=== PATIENT | female | born 1975 ===

== ENCOUNTER 2017-05-06 17:24 | Emergency (ER) | payer BC, OTHER ==
[2017-05-06 17:36] VITALS: BP 138/93
--- NOTE | 2017-05-06 18:21 | Emergency Department Report ---
Minor Respiratory - HPI Chief Complaint: Sore Throat Stated Complaint: EAR AND SORE THROAT Time Seen by Provider: 05/06/17 18:17 Duration: 5 Days Pain Location: Facial, Throat Severity: mild Minor Respiratory: Yes Sore Throat, Yes Able to Tolerate Fluids, Yes Ear Pain, Yes Cough, No Rhinorrhea, No Sick Contacts, No Hemoptysis, No Chest Pain, No Shortness of Breath, No Fever ED Review of Systems ROS: Stated complaint: EAR AND SORE THROAT Other details as noted in HPI Comment: All other systems reviewed and negative ENT: throat pain, other (post nasal drip; clears throat) Respiratory: cough (clears throat) Cardiovascular: denies: chest pain, palpitations Endocrine: no symptoms reported Gastrointestinal: as per HPI Genitourinary: as per HPI Musculoskeletal: as per HPI Skin: as per HPI Neurological: as per HPI Psychiatric: as per HPI Hematological/Lymphatic: as per HPI ED Past Medical Hx - Past Medical History Previous Medical History?: No - Surgical History Past Surgical History?: Yes Additional Surgical History: Tubal ligation 2003 - Social History Smoking Status: Never Smoker Substance Use Type: None - Medications Home Medications: Home Medications Medication Instructions Recorded Confirmed Last Taken Type Amoxicillin [Trimox CAP] 500 mg PO BID #20 capsule 05/06/17 Unknown Rx methylPREDNISolone [Medrol] 4 mg PO DAILY #1 tab.ds.pk 05/06/17 Unknown Rx Minor Respiratory Exam - Exam General: Vital signs noted. No distress. Alert and acting appropriately. HEENT: Yes Pharyngeal Erythema, Yes Moist Mucous Membranes, Yes Maxillary Tenderness, No Pharyngeal Exudates, No Rhinorrhea, No Conjuctival Injection, No Frontal Tenderness Ear: Neither TM Bulge, Neither TM Erythema, Neither EAC Pain, Neither EAC Discharge (wax r) Neck: Yes Adenopathy, No Supple Lungs: Yes Good Air Exchange, No Wheezes, No Ronchi, No Stridor, No Cough, No Labored Respirations, No Retractions, No Use of Accessory Muscles, No Other Abnormal Lung Sounds Heart: Yes Regular, No Murmur Abdomen: Yes Normal Bowel Sounds, No Tenderness, No Peritoneal Signs Skin: No Rash, No Edema Neurologic: Alert and oriented, no deficits. Musculoskeletal: Unremarkable. ED Course Vital Signs 05/06/17 17:33 Temperature 99 F Pulse Rate 80 Respiratory 18 Rate Blood Pressure 138/93 O2 Sat by Pulse 100 Oximetry - Reevaluation(s) Reevaluation #1: 05/06/17 18:21 vss no fever no cp no sob non toxic ED Medical Decision Making - Medical Decision Making see note - Differential Diagnosis urti Critical care attestation.: If time is entered above; I have spent that time in minutes in the direct care of this critically ill patient, excluding procedure time. ED Disposition Clinical Impression: Upper respiratory infection, Sinusitis, Pharyngitis Disposition: DC- TO HOME OR SELFCARE Is pt being admited?: No Does the pt Need Aspirin: No Condition: Stable Instructions: Sinusitis (ED) Additional Instructions: rest hydrate well motrin or tylenol for pain or fever zyrtec over the counter as needed for post nasal drip flonase over the counter daily debrox over the counter for wax in your right ear no q tips meds as ordered today follow up pcp see name below Referrals: YUDI MELISSA MD [Staff Physician] - 3-5 Days Time of Disposition: 18:19
== END 2017-05-06 18:49 | disposition home or self-care (01) ==
LOC: ED 17:24
DX: J06.9 Acute upper respiratory infection, unspecified (principal); J32.0 Chronic maxillary sinusitis; J02.9 Acute pharyngitis, unspecified
CPT/HCPCS: 99282

== ENCOUNTER 2017-10-25 03:38 | Emergency (ER) | payer SELFPAY ==
--- NOTE | 2017-10-25 06:43 | Emergency Department Report ---
Chief Complaint: Urogenital-Female Stated Complaint: VAGINAL PAIN Time Seen by Provider: 10/25/17 06:41 - HPI History of Present Illness: 42-year-old female presents with vaginal odor with vaginal H in the past 2 days. She states dysuria states last menstrual period was - ROS Review of Systems: As noted in HPI, denies fever assess shows sinus nausea or vomiting abdominal pain - Exam Vital Signs: Vital Signs 10/25/17 03:57 Temperature 98.9 F Pulse Rate 91 H Blood Pressure 126/86 O2 Sat by Pulse 100 Oximetry MSE screening note: Focused history and physical exam performed. Due to findings the following was ordered: ED Medical Decision Making - Medical Decision Making Stable 42-year-old female, urinalysis, urine test, wet prep and chlamydia and gonorrhea cultures ordered. She is stable patient will be moved to home with the pelvic pain will be seen by oncoming provider ED Disposition for MSE Condition: Stable Referrals: PRIMARY CARE, [Primary Care Provider] - 3-5 Days
[2017-10-25 07:08] LABS: HCG Qualitative,Urine Negative (Negative)
[2017-10-25 07:11] LABS: Bacteria,Urine 1+ /HPF (Negative); Bilirubin,Urine NEG (Negative); Blood,Urine NEG (Negative); Color,Urine Yellow (Yellow); Mucus,Urine 2+ /HPF; Protein,Urine <15 mg/dL mg/dL (Negative); Urobilinogen,Urine < 2.0 mg/dL (<2.0)
--- NOTE | 2017-10-25 07:49 | Emergency Department Report ---
ED Female HPI - General Chief complaint: Urogenital-Female Stated complaint: VAGINAL PAIN Time Seen by Provider: 10/25/17 06:41 Source: patient Mode of arrival: Ambulatory Limitations: No Limitations - History of Present Illness Initial comments: This is a 42-year-old female nontoxic, well nourished in appearance, no acute signs of distress presents to the ED with c/o of vaginal itching and pain 3 days. Patient stated that she changed recent so and developed this. Patient stated this occurred prior. Patient also stated that she has vaginal discharge with odor. Patient denies any urinary symptoms. Patient denies any fever, chills, nausea, vomiting, headache, stiff neck, numbness, tingling, chest pain, shortness of breath. Patient denies any abdominal pain or back pain. Patient denies any allergies or significant past medical history. MD Complaint: other (vaginal itching) -: days(s) (3) Radiation: non-radiating Severity: mild Severity scale (0 -10): 4 Quality: other (itching) Consistency: constant Improves with: none Worsens with: none Are you Now?: No Last Menstrual Period: 10/03/17 EDC: 07/10/18 Associated Symptoms: vaginal discharge. denies: vaginal bleeding, abdominal pain, nausea/vomiting, fever/chills, headaches, loss of appetite, dysuria, hematuria, rash, seizure, shortness of breath, syncope, weakness - Related Data Previous Rx's Medication Instructions Recorded Last Taken Type Amoxicillin [Trimox CAP] 500 mg PO BID #20 capsule 05/06/17 Unknown Rx methylPREDNISolone [Medrol] 4 mg PO DAILY #1 tab.ds.pk 05/06/17 Unknown Rx metroNIDAZOLE [Flagyl] 500 mg PO Q12HR #14 tab 10/25/17 Unknown Rx Allergies Allergy/AdvReac Type Severity Reaction Status Date / Time No Known Allergies Allergy Verified 10/25/17 04:01 ED Review of Systems ROS: Stated complaint: VAGINAL PAIN Other details as noted in HPI Constitutional: denies: chills, fever Eyes: denies: eye pain, eye discharge, vision change ENT: denies: ear pain, throat pain Respiratory: denies: cough, shortness of breath, wheezing Cardiovascular: denies: chest pain, palpitations Endocrine: no symptoms reported Gastrointestinal: denies: abdominal pain, nausea, diarrhea Genitourinary: discharge. denies: urgency, dysuria Musculoskeletal: denies: back pain, joint swelling, arthralgia Skin: denies: rash, lesions Neurological: denies: headache, weakness, paresthesias Psychiatric: denies: anxiety, depression Hematological/Lymphatic: denies: easy bleeding, easy bruising ED Past Medical Hx - Surgical History Additional Surgical History: Tubal ligation 2003 - Social History Smoking Status: Never Smoker Substance Use Type: None - Medications Home Medications: Home Medications Medication Instructions Recorded Confirmed Last Taken Type Amoxicillin [Trimox CAP] 500 mg PO BID #20 capsule 05/06/17 Unknown Rx methylPREDNISolone [Medrol] 4 mg PO DAILY #1 tab.ds.pk 05/06/17 Unknown Rx metroNIDAZOLE [Flagyl] 500 mg PO Q12HR #14 tab 10/25/17 Unknown Rx ED Physical Exam - General Limitations: No Limitations General appearance: alert, in no apparent distress - Head Head exam: Present: atraumatic, normocephalic - Eye Eye exam: Present: normal appearance Pupils: Present: normal accommodation - ENT ENT exam: Present: normal exam, mucous membranes moist - Neck Neck exam: Present: normal inspection, full ROM. Absent: tenderness, meningismus - Respiratory Respiratory exam: Present: normal lung sounds bilaterally. Absent: respiratory distress, wheezes, rales, rhonchi, stridor, chest wall tenderness, accessory muscle use, decreased breath sounds, prolonged expiratory - Cardiovascular Cardiovascular Exam: Present: regular rate, normal rhythm, normal heart sounds. Absent: irregular rhythm, systolic murmur, diastolic murmur, rubs, gallop - GI/Abdominal GI/Abdominal exam: Present: soft, normal bowel sounds. Absent: distended, tenderness, guarding, rebound, rigid, diminished bowel sounds - Rectal Rectal exam: Present: deferred - External exam: Present: normal external exam, other (payroll specialist Mya RN present during exam). Absent: erythema, swelling, lesions, lacerations, ecchymosis, bleeding Speculum exam: Present: normal speculum exam, cervical discharge, other ( payroll specialist Mya RN present during exam). Absent: erythema, vaginal discharge, vaginal bleeding, foreign body, tissue, laceration Bi-manual exam: Present: normal bi-manual exam, other (payroll specialist Mya RN present during exam). Absent: cervical motion tendernes, adnexal tenderness, adnexal mass, uterine enlargement, uterine tenderness - Extremities Exam Extremities exam: Present: normal inspection, full ROM, normal capillary refill - Back Exam Back exam: Present: normal inspection, full ROM. Absent: tenderness, CVA tenderness (R), CVA tenderness (L), muscle spasm, paraspinal tenderness, vertebral tenderness, rash noted - Neurological Exam Neurological exam: Present: alert, oriented X3, normal gait - Psychiatric Psychiatric exam: Present: normal affect, normal mood - Skin Skin exam: Present: warm, dry, intact, normal color. Absent: rash ED Course Vital Signs 10/25/17 03:57 Temperature 98.9 F Pulse Rate 91 H Blood Pressure 126/86 O2 Sat by Pulse 100 Oximetry - Reevaluation(s) Reevaluation #1: 10/25/17 07:47 Patient is speaking in full sentences with no signs of distress noted. ED Medical Decision Making - Medical Decision Making This is a 42-year-old female that presents with BV. Patient is stable and was examined by me. A UA, wet prep and gonorrhea chlamydia obtained. Upon examination patient does not have any abdominal pain or back pain. Patient was instructed to return in 3 days to obtain gonorrhea and chlamydia results. Patient stated that she is not concerned about gonorrhea chlamydia and would like not to be treated empirically. patient was instructed not to consume any alcohol while taking Flagyl. Patient was instructed to Follow-up with a primary care doctor in 3-5 days or if symptoms worsen and continue return to emergency room as soon as possible. At time of discharge, the patient does not seem toxic or ill in appearance. No acute signs of distress noted. Patient agrees to discharge treatment plan of care. No further questions noted by the patient. Critical care attestation.: If time is entered above; I have spent that time in minutes in the direct care of this critically ill patient, excluding procedure time. ED Disposition Clinical Impression: Bacterial vaginosis Disposition: DC-01 TO HOME OR SELFCARE Is pt being admited?: No Does the pt Need Aspirin: No Condition: Stable Instructions: Bacterial Vaginosis (ED), Metronidazole (By mouth) Additional Instructions: Follow-up with a primary care doctor in 3-5 days or if symptoms worsen and continue return to emergency room as soon as possible. Do not consume any alcohol while taking Flagyl. Prescriptions: metroNIDAZOLE [Flagyl] 500 mg PO Q12HR #14 tab Referrals: PRIMARY CARE, [Primary Care Provider] - 3-5 Days ELIZABETH MCGREGOR MD [Staff Physician] - 3-5 Days [facility] [Outside] - 3-5 Days [facility] [Outside] - 3-5 Days Forms: Work/School Release Form(ED)
[2017-10-25 09:20] VITALS: BP 129/76
== END 2017-10-25 10:02 | disposition home or self-care (01) ==
LOC: ED 03:38
DX: N76.0 Acute vaginitis (principal); Z98.51 Tubal ligation status
CPT/HCPCS: 81001; 81025; 87086; 87210; 87591; 99284

== ENCOUNTER 2018-02-04 18:01 | Emergency (ER) | payer OTHER ==
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
[2018-02-04 22:38] VITALS: BP 125/86
== END 2018-02-04 22:35 | disposition home or self-care (01) ==
LOC: ED 18:01
DX: R07.89 Other chest pain (principal); R20.0 Anesthesia of skin; R11.2 Nausea with vomiting, unspecified; R42 Dizziness and giddiness; V89.2XXA Person injured in unspecified motor-vehicle accident, traffic, initial encounter; Y93.89 Activity, other specified; Y92.488 Other paved roadways as the place of occurrence of the external cause; Y99.8 Other external cause status
CPT/HCPCS: 99282